=== PATIENT | female | born 1990 | race African-American/Black ===

== ENCOUNTER 2020-09-05 08:15 | Inpatient (IN) | payer BC ==
[2020-09-05] MEDS ORDERED: ONDANSETRON 4 MG/2 ML VIAL IVPUSH PRN (10:24)
[2020-09-05] MEDS ORDERED: morphine SULFATE/PF 0.5 MG/ML (2cc Syringe - QUVA) ONE (10:34)
[2020-09-05] MEDS ORDERED: CITRIC ACID/SODIUM CITRATE 30 ML UNIT-DOSE CUP PO ONE (10:43)
--- NOTE | 2020-09-05 10:50 | HP ---
Past Medical History - Admission Chief Complaint: at term; previous brain surgery for aneurysm; cleared by neuro History Source: Patient Limitations to Obtaining History: No Limitations - Past Medical History ...: 1 ...EDC by Dates: 09/11/20 - Past Surgical History Past Surgical History: Yes: Craniotomy (had brain surgery for repair of aneurysm) Hx Myomectomy: No Hx Transabdominal Cerclage: No - Alcohol/Substance Use Hx Alcohol Use: No History of Substance Use: reports: None - Social History Usual Living Arrangement: Yes: With Spouse Home Medications - Allergies Allergies/Adverse Reactions: Allergies Allergy/AdvReac Type Severity Reaction Status Date / Time No Known Allergies Allergy Verified 09/05/20 10:24 - Home Medications Home Medications: Ambulatory Orders Aspirin 81 tablet PO DAILY 09/05/20 Tablet 1 tablet PO DAILY MDD 1 09/05/20 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 - Maternity Constitutional: Yes: Well Nourished Eyes: Yes: WNL HENT: Yes: WNL Neck: Yes: WNL Cardiovascular: Yes: Regular Rate and Rhythm Lungs: Normal air movement - Abdominal Exam/OB Number of Fetuses: Single Presentation: Vertex Contractions: No Monitor Mode: External Heart Rate (range): 150 Category: I Accelerations: Uniform Decelerations: None - Vaginal Exam/OB Vaginal Bleeding: No Presentation: Vertex/Position - 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 Edema: No Problem List - Problems (1) 39 weeks gestation of Code(s): Z3A.39 - 39 WEEKS GESTATION OF Assessment/Plan for primary c section; R/B/A has been reviewed with patient in view of previous brain surgery; declines vaginal delivery
[2020-09-05 11:23] VITALS: BMI 34.0
[2020-09-05] MEDS ORDERED: ceFAZolin SODIUM 1 GM VIAL ONE (11:31)
[2020-09-05] MEDS ORDERED: PHENYLEPHRINE HCL 10 MG/1 ML SINGLE DOSE VIAL ONE (11:34)
[2020-09-05] MEDS ORDERED: OXYTOCIN 10 UNITS/ML VIAL ONE ×3 (11:38→11:50)
[2020-09-05] MEDS ORDERED: OXYTOCIN 20 UNITS in 0.9% NS 1000 ML INFUS.BAG IV ONE (12:00)
[2020-09-05] MEDS ORDERED: METHYLERGONOVINE MALEATE 0.2 MG/1 ML AMP IM PRN (12:22)
[2020-09-05] MEDS ORDERED: oxyCODONE HCL 5 MG TABLET PO PRN (12:22)
--- NOTE | 2020-09-05 12:33 | OP ---
Operative Note - Note: Operative Date: 09/05/20 Pre-Operative Diagnosis: term with previous brain surgery Operation: primary c section Findings: live baby girl; ROP position uterine atony that responded to Methe small fibroidsrgine Post-Operative Diagnosis: Same as Pre-op Surgeon: Stas Deutsch Political Anthropologist: Bentley Linda Anesthesia: Spinal Estimated Blood Loss (mls): 800 Operative Report Dictated: Yes
[2020-09-05] MEDS ORDERED: ELECTROLYTE-148 SOLN 1,000 ML IV SCH (12:45)
[2020-09-05] MEDS: IBUPROFEN 800 MG/8 ML IJ IVPB PRN (14:58)
[2020-09-05] MEDS: CEFAZOLIN 1 GM/D5W 1 GM/50 ML BAG IVPB SCH (17:14)
[2020-09-06] MEDS: CEFAZOLIN 1 GM/D5W 1 GM/50 ML BAG IVPB SCH ×2 (02:18→09:45)
[2020-09-06] MEDS: IBUPROFEN 800 MG/8 ML IJ IVPB PRN (05:13)
[2020-09-06 08:32] LABS: BASO % 0.4 % (0-2.0); EOS % 0.2 % (0-4.5); HEMATOCRIT 32.4 % (32.4-45.2); HEMOGLOBIN 10.5 GM/dL (10.7-15.3); LYMPH % 19.3 % (8-40); MCH 26.6 pg (25.7-33.7); MCHC 32.3 g/dl (32.0-36.0); MEAN CELL VOLUME 82.4 fl (80-96); MEAN PLT VOLUME 11.3 fl (7.5-11.1); MONO % 7.2 % (3.8-10.2); NEUT % 72.9 % (42.8-82.8); PLATELET COUNT 101 K/MM3 (134-434); RBC 3.94 M/mm3 (3.60-5.2); RDW 17.5 % (11.6-15.6); WHITE BLOOD COUNT 7.2 K/mm3 (4.0-10.0)
--- NOTE | 2020-09-06 09:51 | PN ---
Progress Note (short form) - Note Progress Note: Post op day#1.S/P C Section under spinal anesthesia with duramorph une ventful.Patient stable and has little pain for which she is on medication.No any anesthesia related problem.Patient DC from the anesthesia care.
[2020-09-06] MEDS ORDERED: BISACODYL 10 MG SUPP.RECT RC PRN (12:23)
[2020-09-06] MEDS: ASPIRIN COATED 81 MG TABLET.EC PO SCH (13:01)
[2020-09-06] MEDS: IBUPROFEN 600 MG TABLET (FP) PO PRN ×2 (13:06→18:10)
--- NOTE | 2020-09-06 18:36 | PN ---
Progress Note (short form) - Note Progress Note: POD#1: patient comfortable; no complains ; tolerating regular diet VSS abdomen softly distended; dressing intact; dry lochia normal I/P: doing well; cbc stable; platelets= 101 I/P: stable; see orders Problem List - Problems (1) 39 weeks gestation of Code(s): Z3A.39 - 39 WEEKS GESTATION OF
[2020-09-07] MEDS: IBUPROFEN 600 MG TABLET (FP) PO PRN ×5 (00:15→22:08)
[2020-09-07] MEDS: SIMETHICONE 80 MG TAB.CHEW (FP) PO PRN ×2 (00:15→22:08)
[2020-09-07] MEDS: ASPIRIN COATED 81 MG TABLET.EC PO SCH (10:21)
--- NOTE | 2020-09-07 11:40 | PN ---
Progress Note (short form) - Note Progress Note: PPD32: patient comfortable; no complains abdomen soft; dressing removed; incision healing well lochia normal I/P: doing well; home in am Problem List - Problems (1) 39 weeks gestation of Code(s): Z3A.39 - 39 WEEKS GESTATION OF
[2020-09-07 21:40] VITALS: TEMP 98
[2020-09-08] MEDS: SIMETHICONE 80 MG TAB.CHEW (FP) PO PRN (07:17)
[2020-09-08] MEDS: IBUPROFEN 600 MG TABLET (FP) PO PRN ×2 (07:17→10:19)
--- NOTE | 2020-09-08 09:19 | DS ---
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 Vital Signs: Vital Signs Temperature 98.0 F 09/07/20 21:39 Pulse Rate 106 H 09/07/20 21:39 Respiratory Rate 20 09/07/20 21:39 Blood Pressure 123/75 09/07/20 21:39 O2 Sat by Pulse Oximetry (%) 99 09/07/20 08:44 Constitutional: Yes: Well Nourished Eyes: Yes: WNL HENT: Yes: WNL Neck: Yes: WNL Cardiovascular: Yes: WNL Respiratory: Yes: WNL Internal Exam Deferred: Yes Uterus: Yes: Firm ....Post : Yes: Uterus non-tender, Slight lochia rubra Edema: No Labs: CBC, BMP 09/06/20 08:12 Delivery - Delivery Type of Anesthesia: Spinal Episiotomy/Laceration: None EBL (cc): 800 Delivery, Single - Stages of Labor Date of Delivery: 09/05/20 Time of Delivery: 11:40 Time Placenta Delivered: 11:40 - Condition of Water Quality Assistant/Endodontist Present: Yes Name: Casie Chaves Gender: Female Weight: 2.778 kg Position: Right, OT Total Hours ROM (Hrs/Mins): H2M - 1 Minute Total Score: 9 5 Minutes Total Score: 9 - Bruce Feeding Plan Initial Plan: Exclusive throughout hospitalization Remarks - Remarks Remarks: s/p primary c section; elective h/o brain aneurysm repaired Discharge Summary Problems reviewed: Yes Reason For Visit: Current Active Problems 39 weeks gestation of (Acute) Procedures: Principal: primary c section Hospital Course: unremarkable Plan of Treatment: home Condition: Good - Instructions Diet, Activity, Other Instructions: regular Disposition: HOME - Home Medications Comprehensive Discharge Medication List: Ambulatory Orders Aspirin [ASA -] 81 mg PO DAILY 09/05/20 Pnv No.95/Ferrous Fum/Folic AC [ Vitamin Tablet] 1 each PO DAILY 09/05/20 Prescription Drug Monitoring Program (I-STOP) results: I-STOP reviewed and no issues identified
[2020-09-08 09:23] LABS: BASO % 0.5 % (0-2.0); EOS % 0.8 % (0-4.5); HEMATOCRIT 31.9 % (32.4-45.2); HEMOGLOBIN 10.2 GM/dL (10.7-15.3); LYMPH % 19.5 % (8-40); MCH 26.3 pg (25.7-33.7); MCHC 31.8 g/dl (32.0-36.0); MEAN CELL VOLUME 82.8 fl (80-96); MEAN PLT VOLUME 11.5 fl (7.5-11.1); MONO % 5.4 % (3.8-10.2); NEUT % 73.8 % (42.8-82.8); PLATELET COUNT 114 K/MM3 (134-434); RBC 3.86 M/mm3 (3.60-5.2); RDW 17.9 % (11.6-15.6); WHITE BLOOD COUNT 8.2 K/mm3 (4.0-10.0)
[2020-09-08] MEDS: ASPIRIN COATED 81 MG TABLET.EC PO SCH (10:16)
[2020-09-08 11:38] VITALS: BP 125/76; PULSE 90
--- NOTE | 2020-09-11 16:29 | PATH ---
Surgical Pathology Report Patient Name: BRE GIBSON Med. Rec. 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 Specimen(s) Received PLACENTA Clinical History , previous brain surgery, term , declined vaginal delivery Final Diagnosis PLACENTA, SECTION: 447 G THIRD TRIMESTER PLACENTA WITH TRIVASCULAR UMBILICAL CORD AND UNREMARKABLE PLACENTAL MEMBRANES. Electronically Signed April Steven M.D. Gross Description The specimen is received fresh labeled placenta and is a 447 gram, 16 x 16 x 1 cm. placenta with attached membranes and umbilical cord. The attached membranes are weiss, opaque, and insert marginally. The umbilical cord measures 24 cm. in length and averages 1.2 cm. in diameter. The cord inserts eccentrically, 6 cm. to the nearest margin. No true knots or strictures are identified. Cut surface of the umbilical cord reveals 3 vessels. The surface is perera-blue with minimal fibrin deposition and appropriate caliber vessels. The maternal surface is red-brown with focal defects. Sectioning reveals red-brown, spongy parenchyma. No lesions are identified. Traffic Observer sections are submitted in three cassettes as follows: 1- membrane rolls and umbilical cord; 2-3- full thickness sections of placenta. MLSZ/09/08/2020 sanml/09/08/2020
--- NOTE | 2020-09-14 20:19 | OP ---
DATE OF OPERATION: 09/05/2020 PREOPERATIVE DIAGNOSES: Intrauterine at term and previous brain surgery. POSTOPERATIVE DIAGNOSES: Intrauterine at term and previous brain surgery. OPERATION: Primary section through a lower Pfannenstiel incision. SURGEON: Stas Deutsch MD SPLUNK ARCHITECT: ANDIE Batres ANESTHESIA: Spinal. FINDINGS: Live baby girl in the right occiput posterior position. There was uterine atony that responded to Methergine, and there were small fibroids. ESTIMATED BLOOD LOSS: 800 mL. PROCEDURE: The patient was taken to the operating room, was prepped and draped in the usual sterile fashion after a good level of spinal anesthesia was obtained. Jacques catheter had been introduced into the bladder, was draining clear urine throughout the procedure. With the first knife, a Pfannenstiel incision was made 2 fingerbreadths above the symphysis pubis, and this incision was taken down through the subcutaneous tissue and into the fascia with the Bovie. The fascia was nicked in the midline, and this incision was extended laterally on both sides with the Bovie. The muscles were then from the midline and the fascia, both cephalad and caudad. The peritoneum was identified and entered and this incision was extended cephalad and caudad. A lower-angle retractor was then put in place to protect the bladder. A bladder flap was then created and the lower-angle retractor was repositioned. The lower uterine segment was then entered with Metzenbaums and this incision was extended lateral on both sides. The amniotic bag was then ruptured of clear fluid. The baby was then delivered from the occiput posterior position, with fundal pressure atraumatically. The baby was suctioned. The umbilical cord was clamped and cut and the baby was handed to the fabrication technician, who assigned the Apgars. The placenta was then delivered manually. The uterus was then brought in to the abdominal incision and the uterine cavity was cleaned, with a lap pad, of residual membranes. The uterine incision was then closed in 2 layers, the 1st layer a running locking suture of 4-0 Vicryl, and the 2nd layer inverting the 1st layer with 0 Vicryl. The bladder flap was reapproximated with chromic. The uterus was then repositioned into the pelvic cavity. Ovaries and fallopian tubes were within normal limits. The lateral gutters were then suctioned of blood and fluid. Instrument count, sponge count, needle count was correct. The peritoneum was then closed with chromic, the muscles were reapproximated with chromic. The fascia was closed with 0 Vicryl and the skin was closed with 3-0 Vicryl. A dressing was applied. Patient returned to recovery room in satisfactory condition. MD PIPE LARSEN/[id number]
== END 2020-09-08 14:30 | disposition home or self-care (01) | DRG 788 ==
LOC: JLDR 08:15 → J3W 14:12
PROVIDERS: ADMIT Obstetrics & Gynecology; ATTEND Obstetrics & Gynecology
PROC: 10D00Z1 Extraction of Products of Conception, Low, Open Approach (ICD-10-PCS; principal; 2020-09-05)
DX: O82 Encounter for cesarean delivery without indication (principal); O34.13 Maternal care for benign tumor of corpus uteri, third trimester; D25.9 Leiomyoma of uterus, unspecified; O62.2 Other uterine inertia; Z86.79 Personal history of other diseases of the circulatory system; Z96.89 Presence of other specified functional implants; Z3A.39 39 weeks gestation of pregnancy; Z37.0 Single live birth
CPT/HCPCS: 36415; 85025; 88307-TC